=== PATIENT | male | born 2005 | race Caucasian/White ===

== ENCOUNTER 2024-05-17 19:59 | Outpatient (REF) | payer BC, SELFPAY ==
--- NOTE | ~2024-05-17 | MR_ITS ---
EXAMINATION: MR ELBOW WITHOUT CONTRAST, LEFT CLINICAL INFORMATION: Left elbow pain and swelling. COMPARISON: None available. TECHNIQUE: MRI of the elbow was performed using routine sequences on a high-field scanner. FINDINGS: Ulnar collateral ligament: Linear fluid signal within the undersurface of the distal attachment (coronal image 12/20) measuring up to 0.3 cm in critical dimension. Edema adjacent to the ligament posteriorly. Findings are consistent with acute grade 2 sprain/partial tear. Common flexor tendon: Edema along the proximal common flexor tendon, consistent with a minimal strain. Radial collateral ligament: Intact. Common extensor tendon: Intact. Biceps/triceps tendon: Intact. Articular cartilage/bone: Intact. Ulnar nerve: Intact. Joint fluid/soft tissues: Within normal limits. MR/MR elbow LT wo con IMPRESSION: 1. Acute grade 2 sprain/partial tear of the ulnar collateral ligament. 2. Minimal strain of the proximal common flexor tendon. Electronically signed by: Celso Fay MD 05/18/2024 05:19 AM EDT
== END 2024-05-17 20:00 | disposition home or self-care (01) ==
LOC: HO.MRI 19:59
PROVIDERS: Visit Provider Student in an Organized Health Care Education/Training Program
DX: M25.332 Other instability, left wrist (principal); M25.522 Pain in left elbow
CPT/HCPCS: 73221